=== PATIENT | male | born 1925 | race Caucasian/White ===

== ENCOUNTER → 2016-08-27 | Outpatient (CLI) | payer OTHER | LOC: BMCIMAGING 11:42 | PROVIDERS: ATTEND Emergency Medicine | DX: R91.8 Other nonspecific abnormal finding of lung field (principal); I51.7 Cardiomegaly; M40.204 Unspecified kyphosis, thoracic region ==

== ENCOUNTER → 2016-12-16 | Outpatient (CLI) | payer OTHER | LOC: BMCIMAGING 14:42 | PROVIDERS: ATTEND Internal Medicine | DX: M25.511 Pain in right shoulder (principal); M25.551 Pain in right hip ==

== ENCOUNTER → 2017-01-01 | Outpatient (CLI) | payer OTHER | LOC: BMCIMAGING 15:49 | PROVIDERS: ATTEND Family Medicine | DX: R05 Cough (principal); R91.8 Other nonspecific abnormal finding of lung field ==

== ENCOUNTER → 2017-01-13 | Outpatient (CLI) | payer OTHER | LOC: BHFA 13:00 | PROVIDERS: ATTEND Internal Medicine Cardiovascular Disease | DX: I44.0 Atrioventricular block, first degree (principal); I34.0 Nonrheumatic mitral (valve) insufficiency; R55 Syncope and collapse ==

== ENCOUNTER 2017-02-28 12:49 | Inpatient (IN) | payer OTHER ==
[2017-02-28] MEDS ORDERED: NS 2,200 ML IV ONE (13:28)
--- NOTE | 2017-02-28 13:32 | EDPHY ---
H & P Stated Complaint: UTI dx 3 days ago, concerned re: hematuria, pyelonephrosis, abx not working Time Seen by Provider: 02/28/17 13:19 HPI/ROS: CHIEF COMPLAINT: Fatigue, confusion HISTORY OF PRESENT ILLNESS: The patient is an 89-year-old man who comes to the emergency department with his daughter complaining confusion fatigue and urinary frequency. Daughter states that he began having the symptoms a week ago and was seen by Dr. Pal who found some blood in his urine and started on Bactrim. She states that his symptoms seem to worsen since the Bactrim. He has began having tremors and insomnia and last night began complaining of urinary frequency. He also has had chills but no fevers. No nausea vomiting. No GI symptoms. No chest pain or shortness of breath. 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 No focal weakness numbness or deficits. No slurred speech. Also mild left lower back pain. REVIEW OF SYSTEMS: Constitutional: denies: chills, fever, recent illness, recent injury EENTM: denies: blurred vision, double vision, nose congestion Respiratory: denies: cough, shortness of breath Cardiac: denies: chest pain, irregular heart rate, lightheadedness, palpitations Gastrointestinal/Abdominal: denies: abdominal pain, diarrhea, nausea, vomiting, blood streaked stools Genitourinary: See HPI Musculoskeletal: denies: joint pain, muscle pain Skin: denies: lesions, rash, jaundice, bruising Neurological: denies: headache, numbness, paresthesia, tingling, dizziness, weakness Hematologic/Lymphatic: denies: blood clots, easy bleeding, easy bruising Immunologic/allergic: denies: HIV/AIDS, transplant EXAM: GENERAL: Mild tremors, answers questions appropriately HEAD: Atraumatic, normocephalic. EYES: Pupils equal round and reactive to light, extraocular movements intact, sclera anicteric, conjunctiva are normal. ENT: TMs normal, nares patent, oropharynx clear without exudates. Moist mucous membranes. NECK: Normal range of motion, supple without lymphadenopathy or JVD. LUNGS: Breath sounds clear to auscultation bilaterally and equal. No wheezes rales or rhonchi. HEART: Regular rate and rhythm without murmurs, rubs or gallops. ABDOMEN: Soft, nontender, normoactive bowel sounds. No guarding, no rebound. No masses appreciated. BACK: No CVA tenderness, no spinal tenderness, step-offs or deformities EXTREMITIES: Normal range of motion, no pitting or edema. No clubbing or cyanosis. NEUROLOGICAL: Cranial nerves II through XII grossly intact. Normal speech, normal gait. 5/5 strength, normal movement in all extremities, normal sensation PSYCH: Normal mood, normal affect. SKIN: Warm, dry, normal turgor, no visible rashes or lesions. Source: Patient Exam Limitations: No limitations - Personal History Current Tetanus/Diphtheria Vaccine: Yes Current Tetanus Diphtheria and Acellular Pertussis (TDAP): Yes Tetanus Vaccine Date: 2016 - Medical/Surgical History Hx Asthma: No Hx Chronic Respiratory Disease: No Hx Diabetes: No Hx Cardiac Disease: Yes Hx Renal Disease: No Hx Cirrhosis: No Hx Alcoholism: No Hx HIV/AIDS: No Hx Splenectomy or Spleen Trauma: No Other PMH: medical- uti, arthritis, anemia. surgical- CABG, mitral valve replaced, tamie, R hip, L shoulder - Family History Significant Family History: No pertinent family hx - Social History Smoking Status: Never smoked Alcohol Use: Sober Drug Use: None Constitutional: Initial Vital Signs Temperature (C) 36.8 C 02/28/17 13:02 Heart Rate 103 H 02/28/17 13:02 Respiratory Rate 16 02/28/17 13:02 Blood Pressure 147/75 H 02/28/17 13:02 O2 Sat (%) 93 02/28/17 13:02 O2 Delivery Mode Room Air Allergies/Adverse Reactions: Penicillins Allergy (Severe, Verified 02/28/17 13:00) Hives Home Medications: Medication Instructions Recorded Acetaminophen [Tylenol Tablet] 500 mg PO BID PRN 11/09/12 Atorvastatin Calcium [Lipitor 20 20 mg PO HS 11/09/12 mg (RX)] Escitalopram Oxalate [Lexapro 10 20 mg PO DAILY 11/09/12 MG (RX)] Polyethylene Glycol 3350 [Miralax 17 gm PO BID 11/09/12 17 gm (OTC)] Tamsulosin HCl [Flomax 0.4 MG (RX)] 0.4 mg PO DAILY@1800 11/09/12 Aspirin [Aspirin 81mg (OTC)] 81 mg PO DAILY 02/26/13 MIRTAZAPINE [Remeron 7.5 mg] 7.5 mg PO HS 02/26/13 Metoprolol Succinate 12.5 mg PO BID 02/26/13 Methylphenidate 5 mg PO BID 02/28/17 celeCOXIB [Celebrex (*)] 200 mg PO DAILY PRN 02/28/17 Medical Decision Making - Diagnostics Imaging Results: Imaging Impressions Chest X-Ray 02/28/17 13:29 Impression: 1. Mild prominent interstitial markings to the lung bases that could represent combination of some mild dependent edema and/or atelectasis. 2. Stable moderate cardiomegaly. 3. Progression of patchy sclerosis and subchondral cystic change left proximal humerus. If indicated, consider left shoulder series. Abdomen/Pelvis CT 02/28/17 15:25 Impression: 1. No hydronephrosis or obstructing ureteral calculi. 2. Two left retroperitoneal fluid collections are unchanged since October 2012. 3. No identifiable source for sepsis. Findings discussed with Emergency Department physician, Herman Coffman, at 1639 hours 02/28/2017. Attention: This CT examination is specifically designed to evaluate patients who are clinically suspected of having acute obstructive uropathy. This examination does not use radiographic contrast, and as such, provides only a limited evaluation of the abdomen, pelvis and retroperitoneum. If there is further clinical suspicion for pathological conditions other than obstructive uropathy, a complete CT evaluation of the abdomen and pelvis utilizing intravenous, oral, and rectal contrast should be considered. ED Course/Re-evaluation: 3:40 p.m. I discussed the case with Dr. Danny Bonner who will admit for likely urinary tract infection. The patient does not appear septic according to his lab work. I will start him on antibiotics. I have added on a CT scan to rule out renal stone or infected stone. The patient is being hydrated. Differential Diagnosis: Partial list of the Differential diagnosis considered include but were not limited to; urinary tract infection, kidney stone, dehydration and although unlikely based on the history and physical exam, I also considered electrolyte abnormality, sepsis, head injury, pneumonia, acute coronary disease. - Data Points Laboratory Results: Laboratory Results 02/28/17 13:35 02/28/17 13:28 02/28/17 02/28/17 02/28/17 15:05 13:35 13:35 WBC 5.51 10^3/uL 10^3/uL (3.80-9.50) RBC 3.88 10^6/uL L 10^6/uL (4.40-6.38) Hgb 11.9 g/dL L g/dL (13.7-17.5) Hct 35.7 % L % (40.0-51.0) MCV 92.0 fL fL (81.5-99.8) MCH 30.7 pg pg (27.9-34.1) MCHC 33.3 g/dL g/dL (32.4-36.7) RDW 13.6 % % (11.5-15.2) Plt Count 165 10^3/uL 10^3/uL (150-400) MPV 9.1 fL fL (8.7-11.7) Neut % (Auto) 70.9 % % (39.3-74.2) Lymph % (Auto) 17.6 % % (15.0-45.0) [place] % (Auto) 6.9 % % (4.5-13.0) Eos % (Auto) 3.3 % % (0.6-7.6) Baso % (Auto) 0.9 % % (0.3-1.7) Nucleat RBC Rel Count 0.0 % % (0.0-0.2) Absolute Neuts (auto) 3.91 10^3/uL 10^3/uL (1.70-6.50) Absolute Lymphs (auto) 0.97 10^3/uL L 10^3/uL (1.00-3.00) Absolute Monos (auto) 0.38 10^3/uL 10^3/uL (0.30-0.80) Absolute Eos (auto) 0.18 10^3/uL 10^3/uL (0.03-0.40) Absolute Basos (auto) 0.05 10^3/uL 10^3/uL (0.02-0.10) Absolute Nucleated RBC 0.00 10^3/uL 10^3/uL (0-0.01) Immature Gran % 0.4 % % (0.0-1.1) Immature Gran # 0.02 10^3/uL 10^3/uL (0.00-0.10) PT INR APTT VBG Lactic Acid 1.5 mmol/L mmol/L (0.7-2.1) Sodium Potassium Chloride Carbon Dioxide Anion Gap BUN Creatinine Estimated GFR Glucose Calcium Total Bilirubin Urine Color YELLOW Urine Appearance CLEAR Urine pH 7.0 (5.0-7.5) Ur Specific [place] 1.014 (1.002-1.030) Urine Protein 2+ H (NEGATIVE) Urine Ketones NEGATIVE (NEGATIVE) Urine Blood NEGATIVE (NEGATIVE) Urine Nitrate NEGATIVE (NEGATIVE) Urine Bilirubin NEGATIVE (NEGATIVE) Urine Urobilinogen NEGATIVE EU EU (0.2-1.0) Ur Leukocyte Esterase NEGATIVE (NEGATIVE) Urine RBC 5-10 /hpf H /hpf (0-3) Urine WBC NONE SEEN /hpf /hpf (0-3) Ur Epithelial Cells NONE SEEN /lpf /lpf (NONE-1+) Urine Mucus TRACE /lpf /lpf (NONE-1+) Urine Glucose NEGATIVE (NEGATIVE) 02/28/17 02/28/17 13:28 13:28 WBC RBC Hgb Hct MCV MCH MCHC RDW Plt Count MPV Neut % (Auto) Lymph % (Auto) [place] % (Auto) Eos % (Auto) Baso % (Auto) Nucleat RBC Rel Count Absolute Neuts (auto) Absolute Lymphs (auto) Absolute Monos (auto) Absolute Eos (auto) Absolute Basos (auto) Absolute Nucleated RBC Immature Gran % Immature Gran # PT 14.1 SEC SEC (12.0-15.0) INR 1.10 (0.83-1.16) APTT 24.3 SEC SEC (23.0-38.0) VBG Lactic Acid Sodium 137 mEq/L mEq/L (134-144) Potassium 5.6 mEq/L H mEq/L (3.5-5.2) Chloride 105 mEq/L mEq/L (97-110) Carbon Dioxide 17 mEq/l L mEq/l (22-31) Anion Gap 15 mEq/L mEq/L (8-16) BUN 49 mg/dL H mg/dL (7-23) Creatinine 2.4 mg/dL H mg/dL (0.7-1.3) Estimated GFR 26 Glucose 132 mg/dL H mg/dL (70-100) Calcium 9.0 mg/dL mg/dL (8.5-10.4) Total Bilirubin 1.1 mg/dL mg/dL (0.1-1.4) Urine Color Urine Appearance Urine pH Ur Specific [place] Urine Protein Urine Ketones Urine Blood Urine Nitrate Urine Bilirubin Urine Urobilinogen Ur Leukocyte Esterase Urine RBC Urine WBC Ur Epithelial Cells Urine Mucus Urine Glucose Medications Given: Acetaminophen (Tylenol) 500 mg PO BID PRN PRN Reason: Pain, Mild Stop: 08/27/17 17:26 Last Admin: 02/28/17 18:03 Dose: 500 mg Sodium Chloride (Ns) 1,000 mls @ 125 mls/hr IV CONT MELISSA Stop: 08/27/17 17:29 Last Admin: 02/28/17 18:03 Dose: 1,000 mls Metoprolol Succinate (Toprol Xl) 12.5 mg PO BID MELISSA Stop: 08/27/17 18:29 Last Admin: 02/28/17 18:33 Dose: 12.5 mg Tamsulosin HCl (Flomax) 0.4 mg PO DAILY@1800 [facility] Stop: 08/27/17 17:59 Last Admin: 02/28/17 18:03 Dose: 0.4 mg Discontinued Medications Sodium Chloride (Ns) 2,200 mls @ 4,400 mls/hr 30 ml/kg infuse over 30 min ( 2200 ml) IV EDNOW ONE PRN Reason: Protocol Stop: 02/28/17 13:57 Last Admin: 02/28/17 13:43 Dose: 2,200 mls Ceftriaxone Sodium/Dextrose (Rocephin 1 Gm (Premix)) 50 mls @ 100 mls/hr IV EDNOW ONE PRN Reason: Protocol Stop: 02/28/17 16:08 Last Admin: 02/28/17 16:09 Dose: 50 mls Departure - Departure Disposition: [facility] Inpatient Acute Clinical Impression: Weakness Hematuria Qualifiers: Hematuria type: unspecified type Qualified Code(s): R31.9 - Hematuria, unspecified Altered mental status Qualifiers: Altered mental status type: disorientation Qualified Code(s): R41.0 - Disorientation, unspecified Condition: Fair
[2017-02-28 13:48] LABS: % IMMATURE GRANULYOCYTES 0.4 % (0.0-1.1); ABSOLUTE IMMATURE GRANULOCYTES 0.02 10^3/uL (0.00-0.10); ADD DIFF? NO; ADD MORPH? NO; ADD SCAN? NO; ATYPICAL LYMPHOCYTE FLAG 0 (0-99); FRAGMENT RBC FLAG 0 (0-99); HEMATOCRIT 35.7 % (40.0-51.0); HEMOGLOBIN 11.9 g/dL (13.7-17.5); LEFT SHIFT FLG 0 (0-99); LIPEMIA HEMOLYSIS FLAG 80 (0-99); MEAN CELL HEMOGLOBIN 30.7 pg (27.9-34.1); MEAN CELL HEMOGLOBIN CONCENTR. 33.3 g/dL (32.4-36.7); MEAN PLATELET VOLUME 9.1 fL (8.7-11.7); PLATELET CLUMPS FLAG 0 (0-99); PLATELET COUNT 165 10^3/uL (150-400); RED BLOOD CELL COUNT 3.88 10^6/uL (4.40-6.38); RED CELL DISTRIBUTION WIDTH 13.6 % (11.5-15.2)
[2017-02-28 13:57] LABS: INR 1.1 (0.83-1.16); PROTIME(PATIENT) 14.1 SEC (12.0-15.0)
[2017-02-28 13:58] LABS: APTT 24.3 SEC (23.0-38.0)
[2017-02-28 14:05] LABS: ANION GAP 15 mEq/L (8-16); BILIRUBIN,TOTAL 1.1 mg/dL (0.1-1.4); CARBON DIOXIDE 17 mEq/l (22-31); CHLORIDE 105 mEq/L (97-110); CREATININE 2.4 mg/dL (0.7-1.3); GLOMERULAR FILTRATION RATE 26; GLUCOSE 132 mg/dL (70-100); POTASSIUM 5.6 mEq/L (3.5-5.2); SODIUM 137 mEq/L (134-144)
[2017-02-28 15:18] LABS: COLOR YELLOW; LEUKOCYTE ESTERASE,URINE NEGATIVE (NEGATIVE); NITRITE,URINE NEGATIVE (NEGATIVE)
[2017-02-28 15:23] LABS: MUCUS TRACE /lpf (NONE-1+)
[2017-02-28 15:24] LABS: WBC,URINE NONE SEEN /hpf (0-3)
[2017-02-28] MEDS ORDERED: ONDANSETRON 4 MG/2 ML VIAL IVP PRN (17:28)
[2017-02-28] MEDS ORDERED: ONDANSETRON DISINTEGRATING 4 MG TAB PO PRN (17:28)
[2017-02-28] MEDS: TAMSULOSIN HCL 0.4 MG CAP PO SCH (18:03)
[2017-02-28] MEDS: NS 1,000 ML IV SCH (18:03)
[2017-02-28] MEDS: ACETAMINOPHEN 500 MG TAB PO PRN (18:03)
--- NOTE | 2017-02-28 18:06 | CPEKG ---
Heart Rate: 103 RR Interval: 583 QRSD Interval: 74 QT Interval: 384 QTC Interval: 503 QRS [place]: 29 T Wave [place]: 57 EKG Severity - ABNORMAL ECG - EKG Impression: SUPRAVENTRICULAR TACHYCARDIA,PVC'S EKG Impression: PROLONGED QT INTERVAL Electronically Signed By: Niko Ulloa 02-Mar-2017 07:53:09
[2017-02-28 18:26] LABS: TROPONIN I 0.033 ng/mL (0.000-0.034)
[2017-02-28] MEDS: METOPROLOL SUCCINATE XR 25 MG TAB PO SCH (18:33)
--- NOTE | 2017-02-28 18:36 | GHP ---
[f rep st] HISTORY AND PHYSICAL DATE OF ADMISSION: 02/28/2017 HISTORY OF PRESENT ILLNESS: The patient is a pleasant 89-year-old gentleman with a history of coron tanja disease, mitral valve replacement, Clostridium difficile, hyponatremia and a broken hip who pres ents with confusion. It sounds like he has developed some hematuria and confusion and his PCP gave him Bactrim as treatment for a UTI. It was continued to be worse and confused, he was brought in to day. Most of the history was taken from the daughter because the patient is encephalopathic and megan ble to answer questions. This is of course a departure from his baseline. His daughter is present at the bedside and he has had urinary retention which is a new problem for h im. He is having tremors and insomnia and poor p.o. intake. He also had some urinary frequency. Emily saba has had chills, but no fevers. He has not had nausea, vomiting or diarrhea. He had a bowel movem ent today. He has not had chest pain or shortness of breath. He has not had heart failure symptoms such as PND, orthopnea, or lower extremity edema. He has not had any focal neurologic deficits, al though his encephalopathy does somewhat limit history taking. His daughter describes poor p.o. intake lately both to food and water. In the emergency department he was found to have a relatively normal UA, received ceftriaxone. REVIEW OF SYSTEMS: A complete 10-point review of systems was conducted and negative except as noted in the history of present illness. PAST MEDICAL HISTORY: 1. Mitral valve replacement. 2. CKD with baseline of 1.6. 3. Coronary artery disease. 4. Recent hip fracture, status post ORIF. 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 6. Osteoporosis. 7. Hypertension. 8. Hyperlipidemia. 9. History of pulmonary hypertension. 10. ORIF of his hip. 11. Mitral valve replacement with porcine valve. SOCIAL HISTORY: He lives with his son and his daughter is present at the bedside. He has no tobacc o or alcohol. FAMILY HISTORY: His parents are . PHYSICAL EXAMINATION: VITAL SIGNS: Temperature 36.8, blood pressure 147/75, pulse about 100, breat phillip 16 times a minute, 98% on room air. GENERAL: No acute distress. Confused. HEENT: Sclerae a nicteric. Oropharynx clear. Mucous membranes moist. NECK: Supple without lymphadenopathy or JVD. LUNGS: Clear to auscultation bilaterally. HEART: S1, S2 with ectopy, and there is a systolic mu rmur. ABDOMEN: Soft, nontender, nondistended. EXTREMITIES: Lower extremities without edema. Guzman ves are nontender. SKIN: Without rash. NEUROLOGIC: Exam is notable for encephalopathy and this l imits a more detailed neurologic exam. LABORATORY: White count 5.5, hemoglobin and hematocrit are 11.9 and 35.7, platelets are 165,000, co ags are normal. Venous lactate is 1.5 which is normal. Sodium 137, potassium 5.6, chloride 105, bi carb 17, BUN 49, creatinine 2.4, glucose 132, bilirubin 1.1. UA shows 5-10 red cells, no white cells, 2+ protein. Chest x-ray, interpreted by me, shows atelectasis at the bases. Stable cardiomegaly. Abdominal pel vis CT shows no hydronephrosis or obstructing renal calculi. There are no ureteral. There is a flu id collection posterolateral to the left kidney that is 8.3 cm and a pelvic fluid collection that is 6 x 4 cm. These are unchanged from October,. I have discussed the case with Dr. Herman Coffman. ASSESSMENT/PLAN: An 89-year-old gentleman presents with encephalopathy and volume depletion with ac mp kidney injury. 1. Encephalopathy. There does not be appear to be a clear inciting cause other than perhaps dehydr ation. We will rehydrate and follow. I will explain further below. 2. Question urinary tract infection. The patient had hematuria and was treated for a UTI. He has a benign UA here. Given the history of Clostridium difficile I am loathe to continue antibiotics. He already received ceftriaxone in the emergency department. I will send a procalcitonin and follow up on these results. If they are high it may prompt a more significant look for a source of infect ion. 3. Question pneumonia. The patient I do not believe has pneumonia based on his chest x-ray and the absence of oxygen requirement. 4. Hyperkalemia. This is mild, attributable to a kidney injury. We will follow. I will check an EKG. 5. Encephalopathy addendum. I think a workup for acute coronary syndrome or ischemic heart event i s reasonable. Will check a troponin and EKG. 6. Irregular heart rate. I think the patient is just having ectopy, but the EKG is pending. 7. Acute kidney injury. I suspect prerenal. We will follow. 8. Hyponatremia. The patient's sodium has returned to a normal baseline. We will rehydrate and fo llow. 9. Prophylaxis. Pharmacologic prophylaxis is indicated with subcu heparin. DISPOSITION: Inpatient status. /[id number]/MODL
[2017-02-28 18:46] LABS: PROCALCITONIN 0.11 ng/mL (0.02-0.10)
[2017-02-28] MEDS: ATORVASTATIN CALCIUM 20 MG TAB PO SCH (19:53)
[2017-02-28] MEDS: MIRTAZAPINE 15 MG TAB PO SCH (19:53)
[2017-02-28] MEDS: POLYETHYLENE GLYCOL 3350 17 GM PKT PO SCH (19:53)
[2017-02-28] MEDS ORDERED: ACETAMINOPHEN 500 MG TAB PO ONE (21:00)
[2017-02-28] MEDS: HEPARIN 5,000 UNIT/0.5 ML SYR SC SCH (22:12)
[2017-03-01] MEDS: NS 1,000 ML IV SCH (01:39)
[2017-03-01 04:50] LABS: % IMMATURE GRANULYOCYTES 0.5 % (0.0-1.1); ABSOLUTE IMMATURE GRANULOCYTES 0.02 10^3/uL (0.00-0.10); ADD DIFF? NO; ADD MORPH? NO; ADD SCAN? NO; ATYPICAL LYMPHOCYTE FLAG 10 (0-99); FRAGMENT RBC FLAG 0 (0-99); HEMATOCRIT 31.2 % (40.0-51.0); HEMOGLOBIN 10.1 g/dL (13.7-17.5); LEFT SHIFT FLG 0 (0-99); LIPEMIA HEMOLYSIS FLAG 80 (0-99); MEAN CELL HEMOGLOBIN 30.6 pg (27.9-34.1); MEAN CELL HEMOGLOBIN CONCENTR. 32.4 g/dL (32.4-36.7); MEAN CELL VOLUME 94.5 fL (81.5-99.8); MEAN PLATELET VOLUME 9.1 fL (8.7-11.7); PLATELET CLUMPS FLAG 0 (0-99); PLATELET COUNT 143 10^3/uL (150-400); RED CELL DISTRIBUTION WIDTH 13.7 % (11.5-15.2)
[2017-03-01 05:00] LABS: ANION GAP 10 mEq/L (8-16); CARBON DIOXIDE 18 mEq/l (22-31); CHLORIDE 109 mEq/L (97-110); CREATININE 2.1 mg/dL (0.7-1.3); GLOMERULAR FILTRATION RATE 30; GLUCOSE 87 mg/dL (70-100); POTASSIUM 5.2 mEq/L (3.5-5.2); SODIUM 137 mEq/L (134-144)
[2017-03-01] MEDS: HEPARIN 5,000 UNIT/0.5 ML SYR SC SCH ×3 (05:56→21:11)
[2017-03-01] MEDS: ASPIRIN 81 MG CHEWABLE TAB PO SCH (09:38)
[2017-03-01] MEDS: METOPROLOL SUCCINATE XR 25 MG TAB PO SCH ×2 (09:38→19:46)
[2017-03-01] MEDS: POLYETHYLENE GLYCOL 3350 17 GM PKT PO SCH ×2 (09:39→19:45)
[2017-03-01] MEDS: ESCITALOPRAM OXALATE 10 MG TAB PO SCH (09:39)
[2017-03-01 11:58] LABS: TROPONIN I 0.064 ng/mL (0.000-0.034)
--- NOTE | 2017-03-01 12:26 | HOSPPROG ---
Hospitalist Progress Note Assessment/Plan: 89M with multiple recent events including fall with hematoma, dog bite, dx of UTI started on bactrim. # acute encephalopathy - better today; may just be related to dehydration but many other potential causes - procalcitonin 0.11 - will monitor off abx # retroperitoneal fluid collections - no change since 2012, I don't think this is related to current presentation # dehydration - s/p IVF, does not appear dehydrated today # indet troponin - will repeat; presentation not really c/w ACS but follow trops to peak - no CP # atrial flutter, SSS - followed by Dr Iqbal, noted chronotropic incompetence on recent Holter - cards has recommended a ppm but patient is reluctant - follow on tele while here # htn - would be a new dx; will follow here - may need treatment but will not start now # dCHF - possibly mild decompensation - check CXR to eval for pulm edema # bilat basilar rales - check CXR # SHA on CKD - better today, approaching baseline # hx MVR - stable # anemia - stable and chronic Subjective: seen with daughter, son in law and granddaughter; everyone feels he is doing better today Objective: Vital Signs Temp Pulse Resp BP Pulse Ox 36.9 C 80 17 149/71 H 92 03/01/17 11:43 03/01/17 11:43 03/01/17 11:43 03/01/17 11:43 03/01/17 11:43 Laboratory Results 03/01/17 03:55 03/01/17 03:55 02/28/17 03/01/17 03/02/17 05:59 05:59 05:59 Intake Total 1500 Output Total 740 550 Balance 760 -550 PT 14.1 SEC (12.0-15.0) 02/28/17 13:28 INR 1.10 (0.83-1.16) 02/28/17 13:[address] reviewed - Physical Exam Constitutional: no apparent distress, appears nourished Cardiovascular: no murmur, rub, or gallop, irregularly irregular Respiratory: no respiratory distress, inspiratory crackles (bilat bases), No expiratory wheeze, No bronchial breath sounds ICD10 Worksheet Patient Problems: Problems Problem Status Onset Osteoporosis Active Weakness Acute Hematuria Acute Altered mental status Acute
[2017-03-01] MEDS: TAMSULOSIN HCL 0.4 MG CAP PO SCH (18:22)
[2017-03-01] MEDS: MIRTAZAPINE 15 MG TAB PO SCH (19:45)
[2017-03-01] MEDS: ATORVASTATIN CALCIUM 20 MG TAB PO SCH (19:46)
[2017-03-02 04:57] LABS: HEMATOCRIT 30.3 % (40.0-51.0); HEMOGLOBIN 9.8 g/dL (13.7-17.5); RED BLOOD CELL COUNT 3.19 10^6/uL (4.40-6.38)
[2017-03-02 04:58] LABS: % IMMATURE GRANULYOCYTES 0.2 % (0.0-1.1); ABSOLUTE IMMATURE GRANULOCYTES 0.01 10^3/uL (0.00-0.10); ADD DIFF? NO; ADD MORPH? NO; ADD SCAN? NO; ATYPICAL LYMPHOCYTE FLAG 10 (0-99); FRAGMENT RBC FLAG 0 (0-99); LEFT SHIFT FLG 0 (0-99); LIPEMIA HEMOLYSIS FLAG 80 (0-99); MEAN CELL HEMOGLOBIN 30.7 pg (27.9-34.1); MEAN CELL HEMOGLOBIN CONCENTR. 32.3 g/dL (32.4-36.7); PLATELET CLUMPS FLAG 10 (0-99); PLATELET COUNT 141 10^3/uL (150-400); RED CELL DISTRIBUTION WIDTH 13.7 % (11.5-15.2)
[2017-03-02 05:07] LABS: ANION GAP 8 mEq/L (8-16); CALCIUM 7.9 mg/dL (8.5-10.4); CARBON DIOXIDE 18 mEq/l (22-31); CHLORIDE 111 mEq/L (97-110); CREATININE 2.1 mg/dL (0.7-1.3); GLOMERULAR FILTRATION RATE 30; GLUCOSE 72 mg/dL (70-100); POTASSIUM 5.5 mEq/L (3.5-5.2); SODIUM 137 mEq/L (134-144)
[2017-03-02] MEDS ORDERED: NS 1,000 ML IV SCH (05:45)
[2017-03-02] MEDS: HEPARIN 5,000 UNIT/0.5 ML SYR SC SCH ×3 (05:46→20:55)
[2017-03-02] MEDS: METOPROLOL SUCCINATE XR 25 MG TAB PO SCH ×2 (09:04→20:55)
[2017-03-02] MEDS: ASPIRIN 81 MG CHEWABLE TAB PO SCH (09:04)
[2017-03-02] MEDS: POLYETHYLENE GLYCOL 3350 17 GM PKT PO SCH ×2 (09:05→20:58)
[2017-03-02] MEDS: ESCITALOPRAM OXALATE 10 MG TAB PO SCH (09:05)
[2017-03-02 13:08] LABS: ANION GAP 10 mEq/L (8-16); CALCIUM 7.9 mg/dL (8.5-10.4); CARBON DIOXIDE 17 mEq/l (22-31); CHLORIDE 111 mEq/L (97-110); CREATININE 2.1 mg/dL (0.7-1.3); GLOMERULAR FILTRATION RATE 30; GLUCOSE 86 mg/dL (70-100); POTASSIUM 5.5 mEq/L (3.5-5.2); SODIUM 138 mEq/L (134-144)
[2017-03-02] MEDS ORDERED: SODIUM POLY SULF 15 GM/60 ML BOTTLE PO ONE ×2 (14:40)
[2017-03-02] MEDS ORDERED: SODIUM BICARBONATE 150 MEQ in WATER FOR INJECTION,STERILE 1,000 ML IV SCH (14:45)
--- NOTE | 2017-03-02 14:50 | HOSPPROG ---
Hospitalist Progress Note Assessment/Plan: 89M with multiple recent events including fall with hematoma, dog bite, dx of UTI started on bactrim. 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 # ileus on CXR - improved; mild nausea, +BM last night, +flatus # retroperitoneal fluid collections - no change since 2012, I don't think this is related to current presentation # dehydration - s/p IVF, improved # indet troponin - d/t renal disease; no further cardiac w/u as inpatient # atrial flutter, SSS - followed by Dr Iqbal, noted chronotropic incompetence on recent Holter - cards has recommended a ppm but patient is reluctant - follow on tele while here # htn - would be a new dx; will follow here - may need treatment but will not start now # dCHF - compensated # hx MVR - stable # anemia - stable and chronic # dispo - likely dc home; need better control of hyperK first Subjective: overall stronger today; daughter concerned about coughing while eating Objective: Vital Signs Temp Pulse Resp BP Pulse Ox 36.8 C 76 14 131/65 H 94 03/02/17 11:33 03/02/17 11:33 03/02/17 11:33 03/02/17 11:33 03/02/17 11:33 Laboratory Results 03/02/17 03:55 03/02/17 12:20 03/01/17 03/02/17 03/03/17 05:59 05:59 05:59 Intake Total 1500 970 Output Total 740 750 Balance 760 220 PT 14.1 SEC (12.0-15.0) 02/28/17 13:28 INR 1.10 (0.83-1.16) 02/28/17 13:28 - Time Spent With Patient Time Spent with Patient: greater than 35 minutes Time Spent with Patient: Greater than 35 minutes spent on this patients care, greater than 50% of time spent counseling, educating, and coordinating care regarding the above mentioned plan. - Physical Exam Constitutional: no apparent distress, appears nourished ICD10 Worksheet Patient Problems: Problems Problem Status Onset Osteoporosis Active Weakness Acute Hematuria Acute Altered mental status Acute
--- NOTE | 2017-03-02 15:20 | CPEKG ---
Heart Rate: 84 RR Interval: 714 QRSD Interval: 70 QT Interval: 388 QTC Interval: 459 QRS [place]: -6 T Wave [place]: 28 EKG Severity - ABNORMAL ECG - EKG Impression: A-FLUTTER W/ PREDOM 3:1 AV BLOCK, A-RATE 250 EKG Impression: MINIMAL ST DEPRESSION, INFERIOR LEADS Electronically Signed By: Niko Ulloa 02-Mar-2017 16:05:16
[2017-03-02] MEDS: TAMSULOSIN HCL 0.4 MG CAP PO SCH (17:30)
[2017-03-02 19:31] LABS: ANION GAP 11 mEq/L (8-16); CALCIUM 7.8 mg/dL (8.5-10.4); CARBON DIOXIDE 17 mEq/l (22-31); CHLORIDE 109 mEq/L (97-110); CREATININE 2.1 mg/dL (0.7-1.3); GLOMERULAR FILTRATION RATE 30; GLUCOSE 96 mg/dL (70-100); POTASSIUM 4.8 mEq/L (3.5-5.2); SODIUM 137 mEq/L (134-144)
[2017-03-02] MEDS: MIRTAZAPINE 15 MG TAB PO SCH (20:55)
[2017-03-02] MEDS: ATORVASTATIN CALCIUM 20 MG TAB PO SCH (20:55)
[2017-03-03 05:11] LABS: ALANINE AMINOTRANSFERASE 44 IU/L (21-72); ALBUMIN 2.8 g/dL (3.5-5.0); ALKALINE PHOSPHATASE 44 IU/L (38-126); ANION GAP 11 mEq/L (8-16); ASPARTATE AMINOTRANSFERASE 31 IU/L (17-59); BILIRUBIN,TOTAL 0.7 mg/dL (0.1-1.4); BILIRUBIN-CONJUGATED 0.3 mg/dL (0.0-0.5); BILIRUBIN-UNCONJUGATED 0.4 mg/dL (0.0-1.1); CALCIUM 7.5 mg/dL (8.5-10.4); CARBON DIOXIDE 20 mEq/l (22-31); CHLORIDE 108 mEq/L (97-110); GLOMERULAR FILTRATION RATE 32; GLUCOSE 76 mg/dL (70-100); POTASSIUM 4.3 mEq/L (3.5-5.2); SODIUM 139 mEq/L (134-144); TOTAL PROTEIN 5.1 g/dL (6.3-8.2)
[2017-03-03] MEDS: HEPARIN 5,000 UNIT/0.5 ML SYR SC SCH ×3 (05:36→21:19)
[2017-03-03] MEDS: ASPIRIN 81 MG CHEWABLE TAB PO SCH (08:41)
[2017-03-03] MEDS: ESCITALOPRAM OXALATE 10 MG TAB PO SCH (08:41)
[2017-03-03] MEDS: METOPROLOL SUCCINATE XR 25 MG TAB PO SCH (08:41)
[2017-03-03] MEDS: POLYETHYLENE GLYCOL 3350 17 GM PKT PO SCH ×2 (09:38→21:19)
--- NOTE | 2017-03-03 10:48 | HOSPPROG ---
Hospitalist Progress Note Assessment/Plan: 89M with multiple recent events including fall with hematoma, dog bite, dx of UTI started on bactrim. 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 role of dc BB if bradycardic # htn - would be a new dx; will follow here - may need treatment but will not start now # dCHF - compensated # hx MVR - stable # anemia - stable and chronic # dispo - wishes to return home daughter anxious, refusing dc today additiona day PT, home in AM Subjective: tele: no bradycardia (interp by me). case d/w dr ceja Objective: Vital Signs Temp Pulse Resp BP Pulse Ox 36.6 C 73 20 188/88 H 94 03/03/17 07:42 03/03/17 07:42 03/03/17 07:42 03/03/17 07:54 03/03/17 07:42 Laboratory Results 03/02/17 03:55 03/03/17 03:56 03/02/17 03/03/17 03/04/17 05:59 05:59 05:59 Intake Total 970 2080 Output Total 750 250 Balance 220 2080 -250 PT 14.1 SEC (12.0-15.0) 02/28/17 13:28 INR 1.10 (0.83-1.16) 02/28/17 13:28 - Physical Exam Constitutional: no apparent distress, appears nourished Eyes: PERRL, anicteric sclera Ears, Nose, Mouth, Throat: moist mucous membranes, hearing normal Cardiovascular: regular rate and rhythym, no murmur, rub, or gallop Respiratory: no respiratory distress, no rales or rhonchi, other (crackles R base) Gastrointestinal: normoactive bowel sounds, soft, non-tender abdomen Genitourinary: no bladder fullness, No hawkins in urethra Skin: warm, normal color Musculoskeletal: full muscle strength Neurologic: AAOx3 ICD10 Worksheet Patient Problems: Problems Problem Status Onset Altered mental status Acute Hematuria Acute Weakness Acute Osteoporosis Active
--- NOTE | 2017-03-03 14:23 | ASMTCMCOM ---
CM Note CM Note Notes: CM met w/ pt and daughter regarding dispo planning. CM provided [facility] for [facility] f/u. D/C anticipated for tomorrow. Either daughter or son will provide transport home. Date Signed: 03/03/2017 01:23 PM Electronically Signed By:Sangita Arce
[2017-03-03] MEDS: TAMSULOSIN HCL 0.4 MG CAP PO SCH (17:33)
[2017-03-03] MEDS: ACETAMINOPHEN 500 MG TAB PO PRN (19:32)
[2017-03-03] MEDS: ATORVASTATIN CALCIUM 20 MG TAB PO SCH (21:13)
[2017-03-03] MEDS: MIRTAZAPINE 15 MG TAB PO SCH (21:13)
[2017-03-04] MEDS: HEPARIN 5,000 UNIT/0.5 ML SYR SC SCH ×2 (06:14→15:14)
--- NOTE | 2017-03-04 09:28 | HOSPPROG ---
Hospitalist Progress Note Assessment/Plan: 89M with multiple recent events including fall with hematoma, dog bite, dx of UTI started on bactrim. 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 - better today, approaching baseline - normokalemic dc tele cr at baseline acute encephalopathy - better today; may just be related to dehydration but many other potential causes - procalcitonin 0.11 - will monitor off abx continues to clear # dysphagia - [employer] eval w no aspiration # ileus on CXR - improved; mild nausea, +BM last night, +flatus # retroperitoneal fluid collections - no change since 2012, I don't think this is related to current presentation # dehydration - s/p IVF, improved # indet troponin - d/t renal disease; no further cardiac w/u as inpatient # atrial flutter, SSS - followed by Dr Iqbal, noted chronotropic incompetence on recent Holter - cards has recommended a ppm but patient is reluctant -BB dc'd; hr remains in 80's # htn - would be a new dx; will follow here - may need treatment but will not start now # dCHF - compensated # hx MVR - stable # anemia - stable and chronic # dispo - home today > 30 minutes on dc Subjective: no night sweats or nocturnal hypoxemia Objective: Vital Signs Temp Pulse Resp BP Pulse Ox 36.8 C 83 18 159/84 H 91 L 03/04/17 07:34 03/04/17 07:34 03/04/17 07:34 03/04/17 07:34 03/04/17 07:34 Laboratory Results 03/02/17 03:55 03/03/17 03:56 03/03/17 03/04/17 03/05/17 05:59 05:59 05:59 Intake Total 2079 1820 Output Total 750 Balance 0 1070 PT 14.1 SEC (12.0-15.0) 02/28/17 13:28 INR 1.10 (0.83-1.16) 02/28/17 13:28 - Physical Exam Constitutional: no apparent distress, appears nourished Eyes: PERRL, anicteric sclera Ears, Nose, Mouth, Throat: moist mucous membranes, hearing normal Cardiovascular: regular rate and rhythym, no murmur, rub, or gallop, No systolic murmur Respiratory: no respiratory distress, no rales or rhonchi Gastrointestinal: normoactive bowel sounds, soft, non-tender abdomen Genitourinary: no bladder fullness, No hawkins in urethra Skin: warm, normal color Musculoskeletal: full muscle strength, no muscle tenderness Neurologic: AAOx3, sensation intact bilaterally ICD10 Worksheet Patient Problems: Problems Problem Status Onset Altered mental status Acute Hematuria Acute Weakness Acute Osteoporosis Active
--- NOTE | 2017-03-04 09:30 | PDIAF ---
- Diagnosis Diagnosis: encephalopathy Code Status: Full Code - Medication Management Discharge Medications: Medications to Continue on Transfer Acetaminophen [Tylenol ES 500 mg (*)] 500 mg PO BID PRN 11/09/12 [Last Taken 01/15 08:00] Atorvastatin Calcium [Lipitor 20 mg (*)] 20 mg PO HS 11/09/12 [Last Taken ] Escitalopram Oxalate [Lexapro 10 MG] 20 mg PO DAILY 11/09/12 [Last Taken ] Polyethylene Glycol 3350 [Miralax 17 gm (*)] 17 gm PO BID 11/09/12 [Last Taken 02/27/17] Tamsulosin HCl [Flomax 0.4 MG (*)] 0.4 mg PO DAILY@1800 11/09/12 [Last Taken ] Aspirin [Aspirin 81mg (*)] 81 mg PO DAILY 02/26/13 [Last Taken 02/27/17] MIRTAZAPINE [Remeron 7.5 mg] 7.5 mg PO HS 02/26/13 [Last Taken 02/27/17] Methylphenidate 5 mg PO BID 02/28/17 [Last Taken 02/27/17] celeCOXIB [Celebrex (*)] 200 mg PO DAILY PRN 02/28/17 [Last Taken Unknown] Discharge Medications: Refer to the Discharge Home Medication list for PRN reason. - Orders Services needed: Home Care, Physical Therapy, Occupational Therapy Home Care Face to Face: I certify that this patient was under my care and that I had the required [id number] encounter meeting the encounter requirements on the discharge day. My findings support the fact that the patient is homebound as defined in CMS Chapter 7 Medicare Benefits Manual 30.1.1, The condition of the patient is such that there exists a normal inability to leave home and consequently, leaving home would require a considerable and taxing effort. - Follow Up Care Current Providers and Referrals: Josh Pal MD [Primary Care Provider] - As per Instructions
[2017-03-04] MEDS: ASPIRIN 81 MG CHEWABLE TAB PO SCH (10:06)
[2017-03-04] MEDS: ESCITALOPRAM OXALATE 10 MG TAB PO SCH (10:06)
[2017-03-04] MEDS: POLYETHYLENE GLYCOL 3350 17 GM PKT PO SCH (10:07)
[2017-03-04 12:07] VITALS: BP 121/60; PULSE 82; RESP 16; TEMP 97.4; O2SAT 94
[2017-03-04] MEDS: ACETAMINOPHEN 500 MG TAB PO PRN (13:16)
--- NOTE | 2017-03-04 17:53 | ASDISCHSUM ---
Discharge Information Plan Status:Home with Home Health Medically Cleared to Leave: Discharge Date:03/04/2017 02:40 PM CM D/C Disposition:Home Health Service ADT D/C Disposition:Home, Routine, Self-Care Projected Discharge Date:03/04/2017 12:00 AM Transportation at D/C:Family Discharge Delay Reason: Follow-Up Date:03/05/2017 Discharge Slot:2 - 12:01 pm - 18:00 pm Final Diagnosis: Placement Information Referral Type:*Home Health Care Services Referral ID:[id number] Provider Name:[facility] Address 1:[address] Phone Number: Address 2: Fax Number: City:[place] Selection Factors: State:[place] Patient Contact Information Contact Name:RHONDA Relationship:Daughter Address: Home Phone: City: [facility] Phone: [facility] Code: Email: Financial Information Financial Class: Primary Plan Desc:MEDICARE INPATIENT Primary Plan Number:[id number] Secondary Plan Desc:[facility] Secondary Plan Number:[id number] Assessment Information [facility] CM Progress Note CM Note CM Note Notes: CM met w/ pt and daughter regarding dispo planning. CM provided daughter, who is the [facility] with instructions for home care f/u. D/C anticipated for tomorrow. Either daughter or son will provide transport home. Date Signed: 03/03/2017 01:23 PM Electronically Signed By:Sangita Arce Intervention Information
--- NOTE | 2017-03-05 17:16 | GDS ---
[f rep st] DISCHARGE SUMMARY DISCHARGE DIAGNOSES: 1. Encephalopathy, secondary to volume depletion. 2. Acute kidney injury, secondary to volume depletion. 3. Hematuria; not a urinary tract infection. 4. Coronary artery disease. 5. History of hip fracture. 6. Osteoporosis. HOSPITAL COURSE: Please see admission history and physical by Dr. Danny Bonner. The patient pres ented on the with confusion. He had recently been started on Bactrim for hematuria, but there is no UA. He had UA in the emergency department which showed 5-10 red cells but no white cells. He also had a procalcitonin which was not consistent with infection. He had an abdominopelvic CT, whi ch showed a stable fluid collection in his left retroperitoneum but no evidence of hydronephrosis an d no renal masses. The patient was rehydrated. Creatinine on presentation was 2.4, which is greater than his baseline of 1.6. He was also hyperkalemic. He had a moderate troponin excursion that was not further evalua muriel and felt to be secondary to coronary artery disease in the setting of kidney injury. He had a n onischemic EKG and no chest symptoms. Patient continued to clear while here. I had extensive discussions with his daughter every day abou t his prognosis. We deferred the outpatient workup of his hematuria. He was alert and clear and di scharged home with home care. The patient has history of atrial fibrillation and is on a b.i.d. beta-bruno, but has had an outpa tient event monitor showing bradycardia. Pacemaker was recommended, which he declined. With a consultation with his rail track maintainer, Dr. Iqbal, we stopped his beta bruno. This was done l ate in the hospital stay. There was no evidence of atrial arrhythmias with a heart rate in the 80s prior to discharge. /[id number]/MODL
== END 2017-03-04 14:40 | disposition home health service (06) | DRG 682 ==
LOC: F2W 16:45 → OBSVTOIN 17:28
PROVIDERS: ADMIT Internal Medicine; ATTEND Internal Medicine
DX: N17.9 Acute kidney failure, unspecified (principal); E86.0 Dehydration; G93.40 Encephalopathy, unspecified; K56.7 Ileus, unspecified; I50.30 Unspecified diastolic (congestive) heart failure; E87.1 Hypo-osmolality and hyponatremia; R31.9 Hematuria, unspecified; I25.10 Atherosclerotic heart disease of native coronary artery without angina pectoris; M81.0 Age-related osteoporosis without current pathological fracture; I48.91 Unspecified atrial fibrillation; N18.9 Chronic kidney disease, unspecified; I12.9 Hypertensive chronic kidney disease with stage 1 through stage 4 chronic kidney disease, or unspecified chronic kidney disease; E78.5 Hyperlipidemia, unspecified; I27.2 Other secondary pulmonary hypertension; D64.9 Anemia, unspecified; R13.10 Dysphagia, unspecified; Z95.3 Presence of xenogenic heart valve
CPT/HCPCS: 92523-GN; 92526-GN; 92610-GN; 96365; 97116-GP; 97161-GP; 97166-GO; 97530-GP; 97535-GO; G8978-GP-CJ; G8979-GP-CI; G8987-GO-CK; G8988-GO-CI; G8989-GO-CJ; G8996-GN-CI; G8997-GN-CI; G8998-GN-CI; G9168-GN-CJ; G9169-GN-CI; J0696